=== PATIENT | female | born 1970 ===

== ENCOUNTER 2016-12-15 10:30 | Emergency (ER) | payer OTHER ==
[2016-12-15] MEDS ORDERED: Lidocaine 5% Patch TD ONE ×2 (11:00→11:20)
[2016-12-15 11:28] VITALS: BP 130/82; PULSE 66; RESP 18; TEMP 98.1; O2SAT 99
--- NOTE | 2016-12-15 12:11 | ED PDOC ---
HPI: Back Time Seen by Provider: 12/15/16 10:48 Chief Complaint (Nursing): Back Pain Chief Complaint (Provider): Back Pain History Per: Patient History/Exam Limitations: no limitations Onset/Duration Of Symptoms: Days Current Symptoms Are (Timing): Still Present Additional Complaint(s): 46 y/o female presents to the emergency department with a complaint of a left- sided shoulder pain, neck pain, and back pain after she woke up this morning with pain on movement after sleeping awkwardly on it. Reports she had experienced similar pain to the right side of the neck and shoulder intermittently for the last 2 weeks. Denies weakness, numbness or tinging to the extremities, fever, headache, or chest pain. Past Medical History Reviewed: Historical Data, Nursing Documentation, Vital Signs Vital Signs: Last Vital Signs Temp 98.1 F 12/15/16 10:45 Pulse 66 12/15/16 10:45 Resp 18 12/15/16 10:45 BP 130/82 12/15/16 10:45 Pulse Ox 99 12/15/16 10:45 - Medical History PMH: HTN - Family History Family History: States: Unknown Family Hx - Social History Current smoker - smoking cessation education provided: No Ex-Smoker (has not smoked in the last 12 months): Yes Alcohol: Social Drugs: Denies - Home Medications Home Medications: Ambulatory Orders Medication Instructions Recorded Metoclopramide [Reglan] 1 tab PO TID PRN #25 tab 06/23/16 Multiple Vitamins 06/23/16 Naproxen [Naprosyn] 500 mg PO BID #20 tab 06/23/16 Tylenol 325mg tab 06/23/16 Cyclobenzaprine [Cyclobenzaprine 10 mg PO Q8 PRN #9 tab 12/15/16 HCl] Lidocaine 5% [Lidoderm] 1 each TP DAILY PRN #5 patch 12/15/16 Naproxen [Naprosyn] 500 mg PO BID PRN #14 tablet 12/15/16 - Allergies Allergies/Adverse Reactions: Allergies Allergy/AdvReac Type Severity Reaction Status Date / Time No Known Allergies Allergy Verified 12/15/16 10:45 Review of Systems ROS Statement: Except As Marked, All Systems Reviewed And Found Negative Constitutional: Negative for: Fever Cardiovascular: Negative for: Chest Pain Musculoskeletal: Positive for: Neck Pain, Shoulder Pain, Back Pain Neurological: Negative for: Weakness, Numbness (tingling to extremities), Headache Physical Exam - Reviewed Nursing Documentation Reviewed: Yes Vital Signs Reviewed: Yes - Physical Exam Appears: Positive for: Non-toxic, No Acute Distress Head Exam: Positive for: ATRAUMATIC, NORMAL INSPECTION, NORMOCEPHALIC Skin: Positive for: Normal Color, Warm, Dry Eye Exam: Positive for: Normal appearance Neck: Positive for: Normal, Supple Cardiovascular/Chest: Positive for: Regular Rate, Rhythm. Negative for: Murmur Respiratory: Positive for: Normal Breath Sounds. Negative for: Accessory Muscle Use, Wheezing, Respiratory Distress Gastrointestinal/Abdominal: Positive for: Normal Exam, Soft. Negative for: Tenderness Back: Positive for: Other (Tenderness along the left trapezius to the left scapula. No midline tenderness. ). Negative for: Normal Inspection Extremity: Positive for: Tenderness (Pain with ROM of the shoulder), Other (5/5 strength noted. ). Negative for: Normal ROM, Pedal Edema Neurologic/Psych: Positive for: Alert, onion tier II-XII (intact. ), Oriented (x3), Gait (Steady) - ECG O2 Sat by Pulse Oximetry: 99 (RA) Pulse Ox Interpretation: Normal Medical Decision Making Medical Decision Making: Time: 10:56 Initial impression: Back, shoulder, and neck pain Initial plan: --Cyclobenzaprine 10 mg PO --Toradol 30 mg IM --Lidocaine 5% 1 ea TD --Reevaluation 1250p re-eval: feeling much better w improved ROM and pain almost resolved. DC from ED w Rx for naprosyn, flexeril (told not to drive or operate machiney while taking) and lidoderm patches. 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 Scribe Attestation: Documented by Ceci Che, acting as a scribe for Anurag Durán MD. Provider Scribe Attestation: All medical record entries made by the Scribe were at my direction and personally dictated by me. I have reviewed the chart and agree that the record accurately reflects my personal performance of the history, physical exam, medical decision making, and the department course for this patient. I have also personally directed, reviewed, and agree with the discharge instructions and disposition. Disposition - Clinical Impression Clinical Impression: Neck muscle strain - Patient ED Disposition Is Patient to be Admitted: No Counseled Patient/Family Regarding: Studies Performed, Diagnosis, Need For Followup - Disposition Referrals: Gabriel Sims MD [Staff Provider] - Disposition Time: 12:55 Condition: STABLE Additional Instructions: Return to ER for any new or worsening symptoms. Take medications as directed. Prescriptions: Cyclobenzaprine [Cyclobenzaprine HCl] 10 mg PO Q8 PRN #9 tab PRN Reason: Muscle Spasm Lidocaine 5% [Lidoderm] 1 each TP DAILY PRN #5 patch PRN Reason: Pain, Moderate (4-7) Naproxen [Naprosyn] 500 mg PO BID PRN #14 tablet PRN Reason: Pain, Moderate (4-7) Instructions: Cervical Strain (DC), Musculoskeletal Pain (ED), Muscle Strain ( ED) Forms: [facility] ([place])
== END 2016-12-15 13:15 | disposition home or self-care (01) ==
LOC: H.ER 10:30
DX: S16.1XXA Strain of muscle, fascia and tendon at neck level, initial encounter (principal); X50.9XXA Other and unspecified overexertion or strenuous movements or postures, initial encounter; Y92.89 Other specified places as the place of occurrence of the external cause; I10 Essential (primary) hypertension
CPT/HCPCS: 81025; 96372; 99282; J1885